=== PATIENT | male | born 1960 | race Caucasian/White ===

== ENCOUNTER 2016-11-03 12:45 | Observation (INO) | payer OTHER ==
[~2016-11-03] VITALS: Ht 180.3 cm; Wt 118.5 kg
[~2016-11-03 12:45] MED LIST: ASPI81TA45 PO; CEPH500C3 PO; LOVA20TA PO; METR-1 PO; PERC10TA27 PO; PROPOFOL 200 MG/20 ML AMP IV ONE
[2016-11-03 12:56] VITALS: BP_SYST 193; BP_SYST 198; BP_DIAS 101; BP_DIAS 116; PULSE 74; RESP 16; TEMP 97.7; O2SAT 98
[2016-11-03 13:50] LABS: BLOOD, URINE LARGE (NEG); GLUCOSE,URINE NEG (NEG); KETONE, URINE NEG (NEG); NITRITE,URINE NEG (NEG); PH, URINE 5.5 (5.0-8.5)
[2016-11-03 13:52] LABS: METHOD OF COLLECTION CLEAN CATCH; URINE COLOR RED (YELLW/STRAW)
[2016-11-03 13:53] LABS: COMMENT (UR) CULT NOT INDICATED; CULTURE IF INDICATED CULT NOT INDICATED; RBC, URINE INNUM /hpf (0-3); WBC, URINE 0-2 /hpf (0-5)
[2016-11-03 14:00] VITALS: BP 170/94; PULSE 70; RESP 18; O2SAT 96
[2016-11-03] MEDS ORDERED: SODIUM CHLOR 0.9% 1000 ML INJ 1,000 ML IV SCH ×2 (14:01→16:32)
[2016-11-03 14:15] LABS: AUTOMATED NEUTROPHIL # 10.4 TH/MM3 (1.8-7.7); BASOPHIL % 0.3 % (0.0-2.0); EOSINOPHIL # 0.1 TH/MM3 (0-0.4); EOSINOPHIL % 0.6 % (0.0-4.0); HEMATOCRIT 42.3 % (39.0-51.0); HEMO FLAGS DIFF FINAL; LYMPH % 19.6 % (9.0-44.0); LYMPHOCYTE # 2.9 TH/MM3 (1.0-4.8); MEAN CORPUSCULAR HEMOGLOBIN 30.7 PG (27.0-34.0); MEAN CORPUSCULAR HGB CONC 34.1 % (32.0-36.0); MONO % 8.3 % (0.0-8.0); NEUT % 71.2 % (16.0-70.0); PLATELET COUNT 248 TH/MM3 (150-450); RED CELL DISTRIBUTION WIDTH 12.6 % (11.6-17.2); WHITE BLOOD COUNT 14.6 TH/MM3 (4.0-11.0)
[2016-11-03] MEDS ORDERED: KETOROLAC TROMETHAMINE 30 MG/ML (IVP) VIAL IVP ONE (14:15)
[2016-11-03] MEDS ORDERED: SODIUM CHLORIDE 0.9% FLUSH 10 ML FLUSH IV FLUSH PRN ×2 (14:15→16:45)
[2016-11-03] MEDS ORDERED: ONDANSETRON HCL 4 MG/2 ML VIAL IVP ONE (14:15)
[2016-11-03 14:24] LABS: CHLORIDE 104 MEQ/L (98-107); POTASSIUM 3.7 MEQ/L (3.5-5.1); SODIUM (NA) 138 MEQ/L (136-145)
[2016-11-03 14:28] LABS: ANION GAP 9 MEQ/L (5-15); BICARBONATE 25.2 MEQ/L (21.0-32.0); BLOOD UREA NITROGEN 16 MG/DL (7-18)
[2016-11-03] MEDS ORDERED: PRED20 PO (14:29)
[2016-11-03] MEDS ORDERED: ZITH250T PO (14:29)
[2016-11-03 14:31] LABS: ALT (GPT) 47 U/L (12-78); AST (GOT) 20 U/L (15-37); GLOMERULAR FILTRATION RATE 70 ML/MIN (>89)
[2016-11-03 14:32] LABS: TOTAL BILIRUBIN ADULT 0.4 MG/DL (0.2-1.0)
--- NOTE | 2016-11-03 14:33 | PD ---
HPI Chief Complaint: Flank/Kidney Pain Time Seen by Provider: 14:01 Travel History International Travel<30 days: No Contact w/Intl Traveler<30days: No Traveled to known affect area: No History of Present Illness HPI 56-year-old male presents with right sided back pain that is been present since 9 a.m. this morning. Quality pain is sharp. Severity is severe per patient. He denies specific modifying factors. He states he had a CAT scan with Dr. fajardo that showed a kidney stone when he had blood in his urine but when he had a KUB and ultrasound they did not see it after he was on Flomax but he is guessing now that that stone is passing given his pain. He denies any other concurrent complaints. PFSH Past Medical History Heart Rhythm Problems: Yes (HX SVT) Cardiovascular Problems: Yes (HAD CARDIAC ABLATION FOR SVT) High Cholesterol: Yes Diminished Hearing: No Kidney Stones: Yes (URIC ACID) Immunizations Current: Yes Tetanus Vaccination: < 5 Years Influenza Vaccination: No Past Surgical History Cardiac Surgery: Yes (CARDIAC ABLASION-SVT ) Genitourinary Surgery: Yes (URINARY STENT, LITHOTRIPSY) Other Surgery: Yes Social History Alcohol Use: Yes (OCC) Tobacco Use: No Substance Use: No Allergies-Medications (Allergen,Severity, Reaction): Coded Allergies: meperidine (Unverified Allergy, Severe, Shortness of Breath, 11/03/16) "ANAPHYLAXIS" ciprofloxacin (Unverified Allergy, Mild, Hives, 11/03/16) Reported Meds & Prescriptions Reported Meds & Active Scripts Active Reported Prednisone 20 Mg Tab 20 Mg PO DAILY Zithromax (Azithromycin) 250 Mg Tab 250 Mg PO DIRECTED Take 2 tabs (500 mg) on day 1 then 1 tab daily x 4 days. Review of Systems Except as stated in HPI: all other systems reviewed are Neg Physical Exam Narrative GENERAL: Well-nourished, well-developed patient. Well-appearing SKIN: Warm and dry. HEAD: Normocephalic and atraumatic. EYES: No injection or drainage. ENT: No nasal drainage noted. NECK: Supple, trachea midline. CARDIOVASCULAR: Regular rate and rhythm RESPIRATORY: Breath sounds equal bilaterally. No accessory muscle use. GASTROINTESTINAL: Abdomen soft, non-tender, nondistended. EXTREMITIES: No edema. BACK: Nontender without obvious deformity. Right mid lower back NEUROLOGICAL: Awake and alert. Motor and sensory grossly within normal limits. Normal speech. Data Data Last Documented VS Vital Signs Date Time Temp Pulse Resp B/P (MAP) Pulse Ox O2 Delivery O2 Flow Rate FiO2 11/03/16 15:39 74 18 170/90 (116) 97 Room Air 11/03/16 12:56 97.7 Orders Orders Urinalysis - C+S If Indicated (11/03/16 13:35) Complete Blood Count With Diff (11/03/16 14:01) Comprehensive Metabolic Panel (11/03/16 14:01) Lipase (11/03/16 14:01) Ct Abd/Pel W/O Iv Contrast (11/03/16 14:01) Iv Access Insert/Monitor (11/03/16 14:01) Ecg Monitoring (11/03/16 14:01) Oximetry (11/03/16 14:01) NPO (11/03/16 14:01) Ondansetron Inj (Zofran Inj) (11/03/16 14:15) Sodium Chlor 0.9% 1000 Ml Inj (Ns 1000 M (11/03/16 14:01) Sodium Chloride 0.9% Flush (Ns Flush) (11/03/16 14:15) Ketorolac Inj (Toradol Inj) (11/03/16 14:15) Morphine Inj (Morphine Inj) (11/03/16 15:30) Admit Order (Ed Use Only) (11/03/16 16:11) Consult Urology (11/03/16 ) Diet Npo (11/03/16 Dinner) Labs Laboratory Tests Test 11/03/16 13:23 11/03/16 14:00 Urine Collection Type CLEAN CATCH Urine Color RED Urine Turbidity CLOUDY Urine pH 5.5 Urine Specific [place] GREATER THAN 1.035 Urine Protein 300 OR GREATER mg/dL Urine Glucose (UA) NEG mg/dL Urine Ketones NEG mg/dL Urine Occult Blood LARGE Urine Nitrite NEG Urine Bilirubin NEG Urine Leukocyte Esterase NEG Urine RBC INNUM /hpf Urine WBC 0-2 /hpf Microscopic Urinalysis Comment CULT NOT INDICATED White Blood Count 14.6 TH/MM3 Red Blood Count 4.70 MIL/MM3 Hemoglobin 14.4 GM/DL Hematocrit 42.3 % Mean Corpuscular Volume 90.0 FL Mean Corpuscular Hemoglobin 30.7 PG Mean Corpuscular Hemoglobin Concent 34.1 % Red Cell Distribution Width 12.6 % Platelet Count 248 TH/MM3 Mean Platelet Volume 8.7 FL Neutrophils (%) (Auto) 71.2 % Lymphocytes (%) (Auto) 19.6 % Monocytes (%) (Auto) 8.3 % Eosinophils (%) (Auto) 0.6 % Basophils (%) (Auto) 0.3 % Neutrophils # (Auto) 10.4 TH/MM3 Lymphocytes # (Auto) 2.9 TH/MM3 Monocytes # (Auto) 1.2 TH/MM3 Eosinophils # (Auto) 0.1 TH/MM3 Basophils # (Auto) 0.0 TH/MM3 CBC Comment DIFF FINAL Differential Comment Blood Urea Nitrogen 16 MG/DL Creatinine 1.10 MG/DL Random Glucose 100 MG/DL Total Protein 7.7 GM/DL Albumin 3.8 GM/DL Calcium Level 9.4 MG/DL Alkaline Phosphatase 61 U/L Aspartate Amino Transf (AST/SGOT) 20 U/L Alanine Aminotransferase (ALT/SGPT) 47 U/L Total Bilirubin 0.4 MG/DL Sodium Level 138 MEQ/L Potassium Level 3.7 MEQ/L Chloride Level 104 MEQ/L Carbon Dioxide Level 25.2 MEQ/L Anion Gap 9 MEQ/L Estimat Glomerular Filtration Rate 70 ML/MIN Lipase 146 U/L MDM Medical Decision Making Medical Screen Exam Complete: Yes Emergency Medical Condition: Yes Medical Record Reviewed: Yes (past history confirmed) Interpretation(s) CBC & BMP Diagram 11/03/16 14:00 Total Protein 7.7, Albumin 3.8, Calcium Level 9.4, Alkaline Phosphatase 61, Aspartate Amino Transf (AST/SGOT) 20, Alanine Aminotransferase (ALT/SGPT) 47, Total Bilirubin 0.4 Last 24 hours Impressions Abdomen/Pelvis CT 11/03/16 1401 Signed Impressions: Service Date/Time: Thursday, November 03, 2016 14:38 - CONCLUSION: 1. 9 x 10 mm calcified distal right ureteral calculus with associated moderate right sided hydroureteronephrosis. 2. Additional 2 mm nonobstructing calyceal calculus in the inferior pole of the right kidney. 3. Additional ancillary findings, as above. Santhosh Graves MD Differential Diagnosis UTI, stone, musculoskeletal, gastritis Narrative Course Will check blood work, urinalysis, CT scan abdominal pelvis and dose with IV fluids, Toradol and reevaluate ed workup with 1cm right sided stone, will discuss with his urologist and dose with morphine patient will be admitted for pain control and urology consult Physician Communication Physician Communication dr weldon states to keep npo and can stay at [place], will try to take to OR tonight dr lozada agrees to observation Diagnosis Primary Impression: Kidney stone Admitting Information Admitting Physician Requests: Observation Rhina Rivera MD Nov 03, 2016 14:33
[2016-11-03 14:34] LABS: ALKALINE PHOSPHATASE 61 U/L (45-117)
--- NOTE | 2016-11-03 15:14 | RADRPT ---
EXAM DATE/TIME: 11/03/2016 14:38 [facility] COMPARISON: CT ABDOMEN & PELVIS W/O CONTRAST, July 30, 2014, 15:32. INDICATIONS : Right flank pain with gross hematuria. History of renal stone. ORAL CONTRAST: No oral contrast ingested. RADIATION DOSE: 23.98 CTDIvol (mGy) MEDICAL HISTORY : Cardiovascular disease. Renal calculi. SURGICAL HISTORY : Cardiac ablation. ENCOUNTER: Initial ACUITY: 1 day PAIN SCALE: 5/10 LOCATION: Right flank TECHNIQUE: Volumetric scanning of the abdomen and pelvis was performed. Using automated exposure control and ad justment of the mA and/or kV according to patient size, radiation dose was kept as low as reasonably achievable to obtain optimal diagnostic quality images. DICOM format image data is available electro nically for review and comparison. FINDINGS: LOWER LUNGS: The visualized lower lungs are clear. LIVER: The visualized portions of the liver demonstrate a stable subcentimeter hypodense lesion in segment 6 which is too small to fully characterize. Liver is otherwise grossly unremarkable without intrahepat ic ductal dilatation. Redemonstration of contracted gallbladder filled with calcified stones. SPLEEN: Normal size without lesion. PANCREAS: Within normal limits. KIDNEYS: Moderate right-sided hydronephrosis with perinephric stranding and hydroureter extending to a 9 x 10 mm calcified calculus in the distal right ureter. There is a second 2 mm calcified calculus in the in ferior pole of the right kidney. No additional radiopaque renal calculi are demonstrated. ADRENAL GLANDS: Within normal limits. VASCULAR: There is no aortic aneurysm. BOWEL/MESENTERY: Moderate sigmoid diverticulosis and scattered descending colonic diverticula. No evidence for bowel o bstruction. No free air. No drainable fluid collection or free fluid. ABDOMINAL WALL: Within normal limits. RETROPERITONEUM: There is no lymphadenopathy. BLADDER: No wall thickening or mass. REPRODUCTIVE: Within normal limits. INGUINAL: There is no lymphadenopathy or hernia. MUSCULOSKELETAL: Within normal limits for patient age. CONCLUSION: 1. 9 x 10 mm calcified distal right ureteral calculus with associated moderate right sided hydrourete ronephrosis. 2. Additional 2 mm nonobstructing calyceal calculus in the inferior pole of the right kidney. 3. Additional ancillary findings, as above. Santhosh Graves MD on November 03, 2016 at 15:04 Board Certified Radiologist. This report was verified electronically.
[2016-11-03] MEDS ORDERED: MORPHINE SULFATE 4 MG/ML INJ IV PUSH ONE (15:30)
[2016-11-03 15:39] VITALS: BP 170/90; PULSE 74; RESP 18; O2SAT 97
[2016-11-03] MEDS ORDERED: ceFAZolin 2 GM PREMIX 50 ML IV SCH (16:30)
[2016-11-03] MEDS ORDERED: LACTULOSE SYRUP 20 GM/30 ML CUP PO PRN (16:45)
[2016-11-03] MEDS ORDERED: BISACODYL 10 MG SUPP RECTAL PRN (16:45)
[2016-11-03] MEDS ORDERED: NALOXONE HCL 0.4 MG/ML AMP IV PUSH PRN (16:45)
[2016-11-03] MEDS ORDERED: MAGNESIUM HYDROXIDE SUSP 30 ML CUP PO PRN (16:45)
[2016-11-03] MEDS ORDERED: SENNOSIDES 8.6 MG TAB PO PRN (16:45)
[2016-11-03] MEDS ORDERED: ACETAMINOPHEN 325 MG TAB PO PRN (16:45)
--- NOTE | 2016-11-03 17:14 | HHI.HP ---
[facility] Service [facility] Primary Care Physician Hakan Dang MD, PhD Admission Diagnosis kidney stone Diagnoses: (1) Kidney stone Diagnosis: Principal (2) Elevated blood pressure reading Chief Complaint: Flank pain and bloody urine Travel History International Travel<30 Days: No Contact w/Intl Traveler <30 Da: No Traveled to Known Affected Are: No History of Present Illness Written by Gerardo Boogie, acting as scribe for Dr. Ortega on 11/03/16 at 17:03. 56-year-old male with no chronic medical illnesses presented to hospital because acute onset of flank pain and hematuria. Patient states that his normal state of health until this morning approximately 9:30 when he developed severe pain in his right flank and started seeing blood. He came to emergency department for evaluation has CT scan done which does show a 1.9 x 10 mm calcified right urethral calculus with associated right sided hydronephrosis. ER physician contacted urologist who recommended to keep the patient nothing by mouth and he will take the stone out tonight. Upon evaluating the patient he is resting carefully. Pain is controlled. Denies any fever or chills, abdominal pain, and vomiting Review of Systems Gastrointestinal: COMPLAINS OF: Abdominal pain Genitourinary: COMPLAINS OF: Hematuria Past Family Social History Past Medical History History of SVT History kidney stones Past Surgical History Cardiac ablation for SVT Cataract surgery Vasectomy History of ganglion cyst removed from bilateral wrist Reported Medications Reported Meds & Active Scripts Active Reported Prednisone 20 Mg Tab 20 Mg PO DAILY Zithromax (Azithromycin) 250 Mg Tab 250 Mg PO DIRECTED Take 2 tabs (500 mg) on day 1 then 1 tab daily x 4 days. Allergies: Coded Allergies: meperidine (Unverified Allergy, Severe, Anaphylaxis, 11/03/16) "ANAPHYLAXIS" ciprofloxacin (Unverified Allergy, Mild, Hives, 11/03/16) Family History Reviewed and unremarkable Social History Patient denies any tobacco, alcohol or illicit drugs Physical Exam Vital Signs Vital Signs Date Time Temp Pulse Resp B/P (MAP) Pulse Ox O2 Delivery O2 Flow Rate FiO2 11/03/16 15:39 74 18 170/90 (116) 97 Room Air 11/03/16 14:00 70 18 170/94 (119) 96 Room Air 11/03/16 14:00 96 Room Air 11/03/16 12:56 97.7 74 16 193/116 (141) 98 198/101 (133) Physical Exam GENERAL: Well-developed, well-nourished, in no acute distress. alert and orientated HEENT: Head is normocephalic without any lesions or masses noted. Facial features are symmetric. Eyes: Pupils equal round reactive to light. Extraocular muscles are intact. Conjunctivae were clear. Oropharyngeal: Pharynx without any erythema edema. Tongue is midline without deviation. Buccal mucosa is moist without any masses or lesions NECK: Supple without any masses. Trachea midline no deviation. No JVD, no bruits are appreciated CARDIAC: Regular rhythm, regular rate. S1/S2 are heard. No murmurs gallops or rubs. LUNGS: Clear to auscultation bilaterally. No wheeze, rhonchi or rales. No use of accessory muscles on inspiration or expiration. ABDOMEN: Soft, nontender. Nondistended. Bowel sounds heard in all 4 quadrants. No organomegaly or masses. Negative rebound, negative guarding. Right flank pain EXTREMITIES: No edema, pulses are equal bilaterally. No cyanosis or clubbing NEUROLOGY: Mood and affect appear appropriate. Cranial nerves II through XII grossly intact. Muscle strength 5/5 in upper and lower extremities bilaterally. Deep tendon reflexes are 2+ in upper and lower extremities bilaterally. Laboratory Laboratory Tests Test 11/03/16 13:23 11/03/16 14:00 Urine Collection Type CLEAN CATCH Urine Color RED Urine Turbidity CLOUDY Urine pH 5.5 Urine Specific [place] GREATER THAN 1.035 Urine Protein 300 OR GREATER Urine Glucose (UA) NEG Urine Ketones NEG Urine Occult Blood LARGE Urine Nitrite NEG Urine Bilirubin NEG Urine Leukocyte Esterase NEG Urine RBC INNUM Urine WBC 0-2 Microscopic Urinalysis Comment CULT NOT INDICATED White Blood Count 14.6 Red Blood Count 4.70 Hemoglobin 14.4 Hematocrit 42.3 Mean Corpuscular Volume 90.0 Mean Corpuscular Hemoglobin 30.7 Mean Corpuscular Hemoglobin Concent 34.1 Red Cell Distribution Width 12.6 Platelet Count 248 Mean Platelet Volume 8.7 Neutrophils (%) (Auto) 71.2 Lymphocytes (%) (Auto) 19.6 Monocytes (%) (Auto) 8.3 Eosinophils (%) (Auto) 0.6 Basophils (%) (Auto) 0.3 Neutrophils # (Auto) 10.4 Lymphocytes # (Auto) 2.9 Monocytes # (Auto) 1.2 Eosinophils # (Auto) 0.1 Basophils # (Auto) 0.0 CBC Comment DIFF FINAL Differential Comment Blood Urea Nitrogen 16 Creatinine 1.10 Random Glucose 100 Total Protein 7.7 Albumin 3.8 Calcium Level 9.4 Alkaline Phosphatase 61 Aspartate Amino Transf (AST/SGOT) 20 Alanine Aminotransferase (ALT/SGPT) 47 Total Bilirubin 0.4 Sodium Level 138 Potassium Level 3.7 Chloride Level 104 Carbon Dioxide Level 25.2 Anion Gap 9 Estimat Glomerular Filtration Rate 70 Lipase 146 Result Diagram: 11/03/16 1400 11/03/16 1400 Imaging Last Impressions Abdomen/Pelvis CT 11/03/16 1401 Signed Impressions: Service Date/Time: Thursday, November 03, 2016 14:38 - CONCLUSION: 1. 9 x 10 mm calcified distal right ureteral calculus with associated moderate right sided hydroureteronephrosis. 2. Additional 2 mm nonobstructing calyceal calculus in the inferior pole of the right kidney. 3. Additional ancillary findings, as above. MD Maikel Christensen VTE Risk Assessment Caprini VTE Risk Assessment: No/Low Risk (score <= 1) Caprini Risk Assessment Model Point Value = 1 Point Value = 2 Point Value = 3 Point Value = 5 Age 41-60 Minor surgery BMI > 25 kg/m2 Swollen legs Varicose veins or History of unexplained or recurrent spontaneous Oral contraceptives or hormone replacement Sepsis (< 1 month) Serious lung disease, including pneumonia (< 1 month) Abnormal pulmonary function Acute myocardial infarction Congestive heart failure (< 1 month) History of inflammatory bowel disease Medical patient at bed rest Age 61-74 Arthroscopic surgery Major open surgery (> 45 min) Laparoscopic surgery (> 45 min) Malignancy Confined to bed (> 72 hours) Immobilizing plaster cast Central venous access Age >= 75 History of VTE Family history of VTE Factor V Leiden Prothrombin [id number] Lupus anticoagulant Anticardiolipin antibodies Elevated serum homocysteine Heparin-induced thrombocytopenia Other congenital or acquired thrombophilia Stroke (< 1 month) Elective arthroplasty Hip, pelvis, or leg fracture Acute spinal cord injury (< 1 month) Prophylaxis Regimen Total Risk Factor Score Risk Level Prophylaxis Regimen 0-1 Low Early ambulation 2 Moderate Order ONE of the following: *Sequential Compression Device (SCD) *Heparin 5000 units SQ BID 3-4 Higher Order ONE of the following medications: *Heparin 5000 units SQ TID *Enoxaparin/Lovenox 40 mg SQ daily (WT < 150 kg, CrCl > 30 mL/min) *Enoxaparin/Lovenox 30 mg SQ daily (WT < 150 kg, CrCl > 10-29 mL/min) *Enoxaparin/Lovenox 30 mg SQ BID (WT < 150 kg, CrCl > 30 mL/min) AND/OR *Sequential Compression Device (SCD) 5 or more Highest Order ONE of the following medications: *Heparin 5000 units SQ TID (Preferred with Epidurals) *Enoxaparin/Lovenox 40 mg SQ daily (WT < 150 kg, CrCl > 30 mL/min) *Enoxaparin/Lovenox 30 mg SQ daily (WT < 150 kg, CrCl > 10-29 mL/min) *Enoxaparin/Lovenox 30 mg SQ BID (WT < 150 kg, CrCl > 30 mL/min) AND *Sequential Compression Device (SCD) Assessment and Plan Assessment and Plan Right renal calculi with moderate right hydronephrosis and hematuria Continue IV fluids Continue straining urine Continue pain control Urologist consulted for further recommendations and plans for surgical intervention Hypertension Likely secondary to pain Clonidine/Vasotec as needed DVT prevention Sequential compression devices This note was transcribed by felix Boogie. I, Dr. Gordon Burt personally performed the history, physical exam, and medical decision making; and confirmed the accuracy of the information in the transcribed note. Authenticated by Dr. Gordon Burt on 11/03/16 at 17:18. Gerardo Boogie Nov 03, 2016 17:14 Gordon Montes MD Nov 03, 2016 17:42
[2016-11-03] MEDS ORDERED: ENALAPRILAT 1.25 MG/ML VIAL IV PUSH PRN (17:15)
[2016-11-03] MEDS ORDERED: cloNIDine HCL 0.1 MG TAB PO PRN (17:15)
[2016-11-03] MEDS ORDERED: MORPHINE SULFATE 4 MG/ML INJ IV PUSH PRN (17:15)
[2016-11-03] MEDS ORDERED: LACTATED RINGER'S 1000 ML IV PRN (17:45)
[2016-11-03] MEDS ORDERED: CHLORHEXIDINE GLUCONATE 2 % 1 PACK (2 CLOTHS) TOPICAL PRN (17:45)
[2016-11-03] MEDS ORDERED: INSULIN HUMAN REGULAR 1,000 UNITS/10 ML VIAL SQ PRN (17:45)
[2016-11-03] MEDS ORDERED: POVIDONE IODINE 5% (ANTISEPSIS KIT) 4 APPLICATIONS EACH NARE PRN (17:45)
[2016-11-03] MEDS ORDERED: SODIUM CHLORID 0.9% 500 ML IV PRN (17:45)
[2016-11-03] MEDS ORDERED: MIDAZOLAM HCL 2 MG/2 ML VIAL ONE (18:04)
[2016-11-03] MEDS ORDERED: IOHEXOL 350 MG/ML 50 ML BTL (for RAD DIAG) OTHER ONE (18:29)
[2016-11-03 18:45] VITALS: PULSE 86
--- NOTE | 2016-11-03 18:50 | MB ---
cc: MARIBETH MONROE DATE OF CONSULTATION 11/03/2016 HISTORY Mr. Donaldson is a pleasant 56-year-old male who presented with acute onset of right-sided flank pain this a.m. associated with some hematuria. CT scan in the emergency room demonstrated a 9 mm lower ureteral calculus causing hydroureter with hydronephrosis. The patient states he has had stones in the past and currently is under the care of Dr. Mcfarlane. PAST MEDICAL HISTORY His medical history includes: 1. SVT. 2. With a history of kidney stones. PAST SURGICAL HISTORY Noted for: 1. Cardiac ablation for SVT. 2. Cataract surgery. 3. Vasectomy. 4. Ganglion cyst removal. MEDICATIONS Please refer to the chart. ALLERGIES CURRENT ALLERGIES ARE TO CIPRO AND MEDPERIDINE. FAMILY HISTORY Denies any family history of prostate cancer. SOCIAL HISTORY His denies smoking, drinking or using drugs. ROS: Right flank pain. NO voiding complaints. Denies CP, SOB, GAit disturbances, skin lesions. Psych: generalized mood Neuro: Normal gait The remaining ROS were reviewed and were negative. PHYSICAL EXAMINATION VITAL SIGNS: Today temperature is 98.1, heart rate is 74, respiratory 18, 169/81. GENERAL: He is a well-developed, well-nourished 56-year-old male in no acute distress. HEENT: Normocephalic, atraumatic. Pupils equal, round, react to light. Extraocular movements intact. NECK: Supple. HEART: Regular rate and rhythm. LUNGS: Clear to auscultation. ABDOMEN: Soft. Some right lower quadrant tenderness is noted and right CVA tenderness is noted. GENITOURINARY: Normal phallus. Testes are descended. EXTREMITIES: Show no cyanosis, clubbing or edema. SKIN: Shows no lesions. NEUROLOGIC: Cranial nerves II-XII are intact. PSYCHIATRIC: Generalized mood. LABORATORY DATA White count 14.6, hemoglobin 14.4, hematocrit 42.3, platelet count of 248. Sodium 138, potassium 3.7, chloride 104, CO2 25.2, BUN 16, creatinine 1.1, glucose of 100. Urinalysis shows 0-2 white cells, numerous red cells. IMAGING Shows a 9-10 mm calcified distal right ureteral calculus with moderate size right hydro ureteral nephrosis. ASSESSMENT A 56-year-old male with history of nephrolithiasis who presents with findings of a 9 mm distal ureteral calculus causing hydro ureteral nephrosis. RECOMMENDATIONS Cystoscopy with right double-J stent insertion. Risks and benefits were discussed. The patient is willing to proceed with the procedure. He will follow up Dr. Mcfarlane as an outpatient to eliminate his stone burden. Maribeth SOLANO/KK /6:14 PM /6:40 PM MTDD
[2016-11-03 19:50] VITALS: BP 152/91; PULSE 70; RESP 16; TEMP 98.6; O2SAT 98
[2016-11-03] MEDS ORDERED: DOCUSATE SODIUM 50 MG/SENNA 8.6 MG TAB PO SCH (21:00)
[2016-11-03] MEDS ORDERED: SODIUM CHLORIDE 0.9% FLUSH 10 ML FLUSH IV FLUSH SCH (21:00)
--- NOTE | 2016-11-03 21:47 | EKG ---
Date Performed: 11/03/2016 Time Performed: 17:18:00 PTAGE: 56 years EKG: Sinus rhythm NONSPECIFIC ST ELEVATION BORDERLINE ECG PREVIOUS TRACING : 10/22/2012 09.58 No significant change from previous tracing noted. DOCTOR: Oracio Whitney Interpretating Date/Time 11/03/2016 21:46:41
--- NOTE | 2016-11-05 20:21 | MP ---
cc: JESUS TALAMANTES DATE OF SURGERY: 11/03/2016 PREOPERATIVE DIAGNOSIS: 9 mm distal right distal ureteral stone with hydro ureteral nephrosis. POSTOPERATIVE DIAGNOSIS: 9 mm distal right distal ureteral stone with hydro ureteral nephrosis. PROCEDURE: Cystoscopy, right retrograde study, right double-J stent insertion. SURGEON: Shaggy Talamantes MD. ANESTHESIA: General LMA. FLUIDS: One liter Crystalloid. ESTIMATED BLOOD LOSS: None. COMPLICATIONS: None. DISPOSITION: The patient tolerated the procedure well. DRAINS: 6 Romanian, 22 cm right double-J stent INDICATIONS FOR PROCEDURE: Enrique Donaldson is a 56-year-old male who presented to the emergency room with right-sided flank pain. CT scan demonstrated a 9 mm distal right ureteral stone with marked hydro ureteral nephrosis. Decision was made to bring the patient to the operating room to undergo cystoscopy, right double-J stent insertion. The risks and benefits were discussed preoperatively and he was willing to proceed. DESCRIPTION OF PROCEDURE: The patient was brought to operating room identified by myself as Enrique Donaldson. He is placed in the dorsolithotomy position, prepped and draped in the usual sterile fashion. He received preprocedure antibiotics, and general LMA anesthesia was administered. A 22 Romanian cystoscope was inserted in the bladder. Pancystoscopy did not reveal any abnormalities. The right ureteral orifice was identified and there was some blood noted coming from the right ureteral orifice. A 5 Romanian open catheter was inserted into the right ureteral orifice and a retrograde study was performed. The stone was visualized in the lower 1/3 of the right ureter and contrast would not pass beyond this point. A 0.35 sensor wire, though was able to pass through the open-ended catheter and up into the kidney with a good curl. A 6-Romanian 22 cm right double-J stent was then placed over the wire with a good curl in the kidney and a good curl in the bladder. The bladder was evacuated. The patient was awoken and transferred to recovery in stable condition. The patient will follow up with Dr. Mcfarlane in the office for definitive treatment of his right distal ureteral stone. Shaggy SOLANO/ANGELITA /6:46 PM /8:05 PM
== END 2016-11-03 19:00 | disposition home or self-care (01) ==
LOC: PHED 12:45 → PHEDA 16:13 → PH5A 19:00
PROVIDERS: ADMIT Hospitalist; ATTEND Hospitalist
DX: N13.2 Hydronephrosis with renal and ureteral calculous obstruction (principal); R94.31 Abnormal electrocardiogram [ECG] [EKG]; E78.00 Pure hypercholesterolemia, unspecified; Z87.442 Personal history of urinary calculi
CPT/HCPCS: 00910; 52332; 74176; 76000; 80053; 81001; 83690; 85025; 93005; 96361; 96374; 96375; 96376; 99285; C1769; C2617; G0378; J0690; J1885; J2250; J2270; J2405; J3010; J7030; J7120; Q9967

== ENCOUNTER 2017-01-27 05:57 | Observation (INO) | payer OTHER ==
[~2017-01-27] VITALS: Ht 180.3 cm; Wt 118.0 kg
[~2017-01-27 05:57] MED LIST changes: -ASPI81TA45 PO; -CEPH500C3 PO; -LOVA20TA PO; -METR-1 PO; -PERC10TA27 PO; +PRED20 PO; -PROPOFOL 200 MG/20 ML AMP IV ONE; +ZITH250T PO
[2017-01-27 06:00] VITALS: BP 190/85; PULSE 88; RESP 16; TEMP 98.1; O2SAT 95
--- NOTE | 2017-01-27 06:14 | PD ---
HPI Chief Complaint: Abdominal Pain Time Seen by Provider: 06:08 Travel History International Travel<30 days: No Contact w/Intl Traveler<30days: No Traveled to known affect area: No History of Present Illness HPI 56-year-old male presents to the emergency department by private transportation for complaint of right upper quadrant and epigastric abdominal pain since 12 midnight. Patient reports he has a known history of gallstones. Patient states he frequently has biliary colic but usually resolves in a short amount of time. This episode has lasted 6 hours. Patient complains of nausea without vomiting. Patient denies fever chills. Patient denies chest pain or shortness of breath. Patient takes no blood thinning agents. Patient does have history of kidney stones but states pain is different and recently underwent stenting and retrieval of stones and does not believe it is a kidney stone. Patient denies other concerns or complaints. Patient rates pain 5-8/10 in intensity. Patient has taken no medications for discomfort. Patient is unable to identify exacerbating or alleviating factors. PFSH Past Medical History Narrative Medical SVT cardiac ablation dyslipidemia kidney stones gallstones ureteral stent lithotripsy alcohol use nursing notes reviewed Heart Rhythm Problems: Yes (HX SVT) Cardiovascular Problems: Yes (HAD CARDIAC ABLATION FOR SVT) High Cholesterol: Yes Diminished Hearing: No Kidney Stones: Yes (URIC ACID) Immunizations Current: Yes ?: Not Past Surgical History Cardiac Surgery: Yes (CARDIAC ABLASION-SVT ) Genitourinary Surgery: Yes (URINARY STENT, LITHOTRIPSY) Other Surgery: Yes Social History Alcohol Use: Yes ([facility]) Tobacco Use: No Substance Use: No Allergies-Medications (Allergen,Severity, Reaction): Coded Allergies: meperidine (Unverified Allergy, Severe, Anaphylaxis, 01/27/17) "ANAPHYLAXIS" ciprofloxacin (Unverified Allergy, Mild, Hives, 01/27/17) Reported Meds & Prescriptions Reported Meds & Active Scripts Active No Active Prescriptions or Reported Medications Review of Systems Except as stated in HPI: all other systems reviewed are Neg General / Constitutional: No: Fever, Chills HENT: No: Congestion Cardiovascular: No: Chest Pain or Discomfort Respiratory: No: Shortness of Breath Gastrointestinal: Positive: Nausea, Abdominal Pain, No: Vomiting, Diarrhea Genitourinary: No: Flank Pain (right upper quadrant) Musculoskeletal: No: Pain Skin: No Rash Neurologic: No: Weakness Hematologic/Lymphatic: No: Lymph Node Enlargement Physical Exam Narrative GENERAL: Well-developed well-nourished male in apparent discomfort with no respiratory distress SKIN: Warm and dry. HEAD: Normocephalic. EYES: No scleral icterus. No injection or drainage. NECK: Supple, trachea midline. No JVD or lymphadenopathy. CARDIOVASCULAR: Regular rate and rhythm without murmurs, gallops, or rubs. RESPIRATORY: Breath sounds equal bilaterally. No accessory muscle use. GASTROINTESTINAL: Abdomen soft, reproducible epigastric tenderness to palpation and right upper quadrant tenderness to palpation without guarding or rebound, nondistended. MUSCULOSKELETAL: No cyanosis, or edema. BACK: Nontender without obvious deformity. No CVA tenderness. Data Data Last Documented VS Vital Signs Date Time Temp Pulse Resp B/P (MAP) Pulse Ox O2 Delivery O2 Flow Rate FiO2 01/27/17 06:19 94 Room Air 01/27/17 06:19 87 18 01/27/17 06:00 98.1 Orders Orders Complete Blood Count With Diff (01/27/17 06:08) Comprehensive Metabolic Panel (01/27/17 06:08) Lipase (01/27/17 06:08) Us Abdomen Gallbladder (01/27/17 ) Iv Access Insert/Monitor (01/27/17 06:08) Ecg Monitoring (01/27/17 06:08) Oximetry (01/27/17 06:08) Ondansetron Inj (Zofran Inj) (01/27/17 06:15) Sodium Chlor 0.9% 1000 Ml Inj (Ns 1000 M (01/27/17 06:08) Sodium Chloride 0.9% Flush (Ns Flush) (01/27/17 06:15) Hydromorphone Pf Inj (Dilaudid Pf Inj) (01/27/17 06:15) NPO (01/27/17 06:08) Electrocardiogram (01/27/17 ) Labs Laboratory Tests Test 01/27/17 06:15 White Blood Count 11.0 TH/MM3 Red Blood Count 4.98 MIL/MM3 Hemoglobin 15.9 GM/DL Hematocrit 45.1 % Mean Corpuscular Volume 90.5 FL Mean Corpuscular Hemoglobin 32.0 PG Mean Corpuscular Hemoglobin Concent 35.4 % Red Cell Distribution Width 13.6 % Platelet Count 248 TH/MM3 Mean Platelet Volume 9.1 FL Neutrophils (%) (Auto) 68.6 % Lymphocytes (%) (Auto) 25.3 % Monocytes (%) (Auto) 5.1 % Eosinophils (%) (Auto) 0.6 % Basophils (%) (Auto) 0.4 % Neutrophils # (Auto) 7.6 TH/MM3 Lymphocytes # (Auto) 2.8 TH/MM3 Monocytes # (Auto) 0.6 TH/MM3 Eosinophils # (Auto) 0.1 TH/MM3 Basophils # (Auto) 0.0 TH/MM3 CBC Comment DIFF FINAL Differential Comment Blood Urea Nitrogen 15 MG/DL Creatinine 1.14 MG/DL Random Glucose 144 MG/DL Total Protein 8.6 GM/DL Albumin 4.3 GM/DL Calcium Level 9.1 MG/DL Alkaline Phosphatase 85 U/L Aspartate Amino Transf (AST/SGOT) 25 U/L Alanine Aminotransferase (ALT/SGPT) 49 U/L Total Bilirubin 0.4 MG/DL Sodium Level 136 MEQ/L Potassium Level 4.4 MEQ/L Chloride Level 103 MEQ/L Carbon Dioxide Level 25.9 MEQ/L Anion Gap 7 MEQ/L Estimat Glomerular Filtration Rate 67 ML/MIN Lipase 180 U/L [facility] Medical Decision Making Medical Screen Exam Complete: Yes Emergency Medical Condition: Yes Medical Record Reviewed: Yes (CT abdomen and pelvis 10/2016 no aneurysm positive gallstones positive kidney stones) Interpretation(s) EKG: Normal sinus rhythm rate [address] elevation injury pattern or ectopy noted CBC & BMP Diagram 01/27/17 06:15 Total Protein 8.6 H, Albumin 4.3, Calcium Level 9.1, Alkaline Phosphatase 85, Aspartate Amino Transf (AST/SGOT) 25, Alanine Aminotransferase (ALT/SGPT) 49, Total Bilirubin 0.4 Differential Diagnosis Abdominal pain, cholecystitis, choledocholithiasis, pancreatitis also to consider gastritis peptic ulcer disease ACS Narrative Course Patient placed on monitor IV access obtained EKG performed; patient administered normal saline 125 cc per hour along with 4 mg of Zofran and 1 mg of Dilaudid IV; ultrasound gallbladder ordered At 6:50 AM care signed over to oncoming physician Dr. Jeanie Mann No Active Prescriptions or Reported Meds Zeynep Cowart MD Jan 27, 2017 06:14
[2017-01-27] MEDS ORDERED: SODIUM CHLORIDE 0.9% FLUSH 10 ML FLUSH IV FLUSH PRN ×2 (06:15→11:45)
[2017-01-27] MEDS ORDERED: ONDANSETRON HCL 4 MG/2 ML VIAL IVP ONE (06:15)
[2017-01-27] MEDS ORDERED: HYDROmorphone HCL PF 1 MG/ML VIAL IVS ONE (06:15)
[2017-01-27] MEDS: SODIUM CHLOR 0.9% 1000 ML INJ 1,000 ML IV SCH ×4 (06:17→21:28)
[2017-01-27 06:19] VITALS: BP 155/89; PULSE 87; RESP 18; O2SAT 93; O2SAT 94
[2017-01-27 06:21] LABS: AUTOMATED NEUTROPHIL # 7.6 TH/MM3 (1.8-7.7); BASOPHIL % 0.4 % (0.0-2.0); EOSINOPHIL # 0.1 TH/MM3 (0-0.4); EOSINOPHIL % 0.6 % (0.0-4.0); HEMATOCRIT 45.1 % (39.0-51.0); HEMO FLAGS DIFF FINAL; LYMPH % 25.3 % (9.0-44.0); LYMPHOCYTE # 2.8 TH/MM3 (1.0-4.8); MEAN CELL VOLUME 90.5 FL (80.0-100.0); MEAN CORPUSCULAR HGB CONC 35.4 % (32.0-36.0); MONO % 5.1 % (0.0-8.0); NEUT % 68.6 % (16.0-70.0); PLATELET COUNT 248 TH/MM3 (150-450); RED BLOOD COUNT 4.98 MIL/MM3 (4.50-5.90); RED CELL DISTRIBUTION WIDTH 13.6 % (11.6-17.2)
[2017-01-27 06:44] LABS: ALT (GPT) 49 U/L (12-78)
[2017-01-27 06:46] LABS: ALKALINE PHOSPHATASE 85 U/L (45-117); ANION GAP 7 MEQ/L (5-15); AST (GOT) 25 U/L (15-37); BICARBONATE 25.9 MEQ/L (21.0-32.0); BLOOD UREA NITROGEN 15 MG/DL (7-18); CHLORIDE 103 MEQ/L (98-107); GLOMERULAR FILTRATION RATE 67 ML/MIN (>89); POTASSIUM 4.4 MEQ/L (3.5-5.1); SODIUM (NA) 136 MEQ/L (136-145); TOTAL BILIRUBIN ADULT 0.4 MG/DL (0.2-1.0)
--- NOTE | 2017-01-27 07:37 | PD ---
Physical Exam Narrative Received sign out from previous team to follow up US gallbladder. 56yo M with PMH of cholelithiasis here with RUQ abdominal pain. Pt given dilaudid and zofran by previous team and reevaluated at bedside. Said pain and nausea has improved. Pt is well appearing. Labs reviewed, no leukocytosis. LFT and lipase is normal. Pt reevaluated at bedside and RUQ pain is back along with nausea. Morphine and zofran ordered. US gallbladder showed cholelithiasis and pericholecystic fluid. Acute cholecystitis cannot be excluded. Given that pt is still in pain and have nausea after IV dilaudid and zofran, discussed with Dr. Santos form surgery who will admit pt. Recommend IV zosyn which was given. Data Data Last Documented VS Vital Signs Date Time Temp Pulse Resp B/P (MAP) Pulse Ox O2 Delivery O2 Flow Rate FiO2 01/27/17 08:40 78 18 133/73 (93) 95 Room Air 01/27/17 06:00 98.1 Orders Orders Complete Blood Count With Diff (01/27/17 06:08) Comprehensive Metabolic Panel (01/27/17 06:08) Lipase (01/27/17 06:08) Us Abdomen Gallbladder (01/27/17 ) Iv Access Insert/Monitor (01/27/17 06:08) Ecg Monitoring (01/27/17 06:08) Oximetry (01/27/17 06:08) Ondansetron Inj (Zofran Inj) (01/27/17 06:15) Sodium Chlor 0.9% 1000 Ml Inj (Ns 1000 M (01/27/17 06:08) Sodium Chloride 0.9% Flush (Ns Flush) (01/27/17 06:15) Hydromorphone Pf Inj (Dilaudid Pf Inj) (01/27/17 06:15) NPO (01/27/17 06:08) Electrocardiogram (01/27/17 ) Morphine Inj (Morphine Inj) (01/27/17 08:30) Ondansetron Inj (Zofran Inj) (01/27/17 08:45) Admit Order (Ed Use Only) (01/27/17 08:58) Piperacil-Tazo 3.375 Gm Premix (Zosyn 3. (12/11/17 09:00) Labs Laboratory Tests Test 01/27/17 06:15 White Blood Count 11.0 TH/MM3 Red Blood Count 4.98 MIL/MM3 Hemoglobin 15.9 GM/DL Hematocrit 45.1 % Mean Corpuscular Volume 90.5 FL Mean Corpuscular Hemoglobin 32.0 PG Mean Corpuscular Hemoglobin Concent 35.4 % Red Cell Distribution Width 13.6 % Platelet Count 248 TH/MM3 Mean Platelet Volume 9.1 FL Neutrophils (%) (Auto) 68.6 % Lymphocytes (%) (Auto) 25.3 % Monocytes (%) (Auto) 5.1 % Eosinophils (%) (Auto) 0.6 % Basophils (%) (Auto) 0.4 % Neutrophils # (Auto) 7.6 TH/MM3 Lymphocytes # (Auto) 2.8 TH/MM3 Monocytes # (Auto) 0.6 TH/MM3 Eosinophils # (Auto) 0.1 TH/MM3 Basophils # (Auto) 0.0 TH/MM3 CBC Comment DIFF FINAL Differential Comment Blood Urea Nitrogen 15 MG/DL Creatinine 1.14 MG/DL Random Glucose 144 MG/DL Total Protein 8.6 GM/DL Albumin 4.3 GM/DL Calcium Level 9.1 MG/DL Alkaline Phosphatase 85 U/L Aspartate Amino Transf (AST/SGOT) 25 U/L Alanine Aminotransferase (ALT/SGPT) 49 U/L Total Bilirubin 0.4 MG/DL Sodium Level 136 MEQ/L Potassium Level 4.4 MEQ/L Chloride Level 103 MEQ/L Carbon Dioxide Level 25.9 MEQ/L Anion Gap 7 MEQ/L Estimat Glomerular Filtration Rate 67 ML/MIN Lipase 180 U/L MDM Supervised Visit with GRACIE: No Diagnosis Primary Impression: Acute cholecystitis Admitting Information Admitting Physician Requests: Admit Scripts No Active Prescriptions or Reported Meds Rosy Ware DO Jan 27, 2017 07:37
--- NOTE | 2017-01-27 08:08 | RADRPT ---
EXAM DATE/TIME: 01/27/2017 07:33 [place] COMPARISON: CT ABDOMEN & PELVIS W/O CONTRAST, November 03, 2016, 14:38. INDICATIONS : Right upper quadrant pain. MEDICAL HISTORY : Hypercholesterolemia. Renal calculi. History of SVT. SURGICAL HISTORY : Optic lens implant. Cardiac ablation. Renal stent. Lithotripsy. Ganglion cysts removed, bilateral wri sts. ENCOUNTER: Initial ACUITY: 4-6 days PAIN SCORE: 4/10 LOCATION: Right upper quadrant MEASUREMENTS: LIVER: 18.7 cm length COMMON DUCT: 5 mm RIGHT KIDNEY: 12.4 x 6.1 x 6.2 cm FINDINGS: LIVER: Normal echotexture without focal lesion or ductal dilatation. Hepatopedal flow. Small simple cyst rig ht lobe measures 11 x 9 x 13 mm. COMMON DUCT: No intraluminal mass or stone visualized. GALLBLADDER: Contains multiple stones including non-mobile stone in the neck, demonstrates no wall thickening. Min imal pericholecystic fluid. PANCREAS: The visualized portions are within normal limits. RIGHT KIDNEY: No evidence of hydronephrosis, stone, or mass. CONCLUSION: 1. Liver is mildly echogenic which can be seen with hepatic steatosis. 2. Benign hepatic cyst. 3. Cholelithiasis and pericholecystic fluid. Acute cholecystitis cannot be excluded. Kevin Hollis MD on January 27, 2017 at 8:04 Board Certified Radiologist. This report was verified electronically.
[2017-01-27] MEDS ORDERED: MORPHINE SULFATE 4 MG/ML INJ IV PUSH ONE (08:30)
[2017-01-27 08:40] VITALS: BP 133/73; PULSE 78; RESP 18; O2SAT 95
[2017-01-27] MEDS ORDERED: ONDANSETRON HCL 4 MG/2 ML VIAL IV PUSH ONE ×2 (08:45→12:00)
[2017-01-27] MEDS ORDERED: PIPERACIL-TAZO 3.375 GM PREMIX 50 ML IV ONE (09:00)
[2017-01-27] MEDS ORDERED: MORPHINE SULFATE 4 MG/ML INJ IV PUSH PRN (11:45)
[2017-01-27] MEDS ORDERED: ONDANSETRON HCL 4 MG/2 ML VIAL IV PUSH PRN (11:45)
[2017-01-27 12:00] VITALS: BP 125/80; PULSE 67; RESP 20; TEMP 97.8; O2SAT 96
[2017-01-27] MEDS ORDERED: DEXAMETHASONE SOD PHOS 4 MG/ML VIAL IV ONE (12:00)
[2017-01-27] MEDS ORDERED: ROCURONIUM INJ 50 MG/5 ML SYRINGE IV PUSH ONE (12:00)
[2017-01-27] MEDS ORDERED: NEOSTIGMINE 5 MG/5 ML SYRINGE IV PUSH ONE (12:00)
[2017-01-27] MEDS ORDERED: GLYCOPYRROLATE 1 MG/5 ML SYRINGE IV PUSH ONE (12:00)
[2017-01-27] MEDS ORDERED: PROPOFOL 200 MG/20 ML AMP IV ONE (12:00)
[2017-01-27] MEDS ORDERED: MIDAZOLAM HCL 2 MG/2 ML VIAL IV ONE (12:00)
[2017-01-27] MEDS ORDERED: hydrALAZINE HCL 20 MG/ML VIAL IV ONE (12:00)
[2017-01-27] MEDS ORDERED: LIDOCAINE HCL 1% PF 5 ML SYRINGE OTHER ONE (12:00)
[2017-01-27] MEDS ORDERED: MORPHINE SULFATE 4 MG/ML INJ IV ONE (12:00)
[2017-01-27] MEDS ORDERED: METOPROLOL TARTRATE 5 MG/5 ML VIAL IV PUSH ONE (12:00)
[2017-01-27] MEDS ORDERED: BUPIVACAINE/EPINEPHRINE 0.25% PF 30 ML VIAL ONE (12:39)
--- NOTE | 2017-01-27 13:35 | HHI.HP ---
HPI Service General Surgery Primary Care Physician Hakan Dang MD, PhD Admission Diagnosis Acute cholecystitis Chief Complaint: Abdominal pain History of Present Illness 56 yo M developed acute onset epigastric pain which awoke him from sleep early this morning. The pain has been unrelenting and associated with nausea. It radiates to the back. He had similar episodes about 2.5 years ago but has not had problems since then. Labs were normal and u/s of the gallbladder shows stones and minimal pericholecystic fluid. No previous abdominal surgeries. Review of Systems Constitutional: DENIES: Fever, Chills Eyes: DENIES: Eye inflammation, Eye pain Respiratory: DENIES: Cough, Shortness of breath Cardiovascular: DENIES: Chest pain, Palpitations Gastrointestinal: COMPLAINS OF: Abdominal pain, Nausea Musculoskeletal: DENIES: Back pain, Neck pain Integumentary: DENIES: Pruritus, Rash Neurologic: DENIES: Paresthesias, Seizures Past Family Social History Past Medical History Kidney stones SVT s/p ablation in mid 90s Past Surgical History ESWL Cardiac ablation ganglion cyst excisions bilateral hands Reported Medications Reported Meds & Active Scripts Active No Active Prescriptions or Reported Medications Allergies: Coded Allergies: meperidine (Unverified Allergy, Severe, Anaphylaxis, 01/27/17) "ANAPHYLAXIS" ciprofloxacin (Unverified Allergy, Mild, Hives, 01/27/17) Active Ordered Medications Current Medications Medications (Trade) Dose Ordered Sig/Christos Route Start Time Stop Time Status Last Admin Sodium Chloride 1,000 ml @ 125 mls/hr Q8H IV 01/27/17 06:08 01/27/17 14:07 01/27/17 12:07 Sodium Chloride 1,000 ml @ 100 mls/hr Q10H IV 01/27/17 11:42 (NS Flush) 2 ml UNSCH PRN IV FLUSH 01/27/17 11:45 (NS Flush) 2 ml BID IV FLUSH 01/27/17 21:00 (Zofran Inj) 4 mg Q6H PRN IV PUSH 01/27/17 11:45 (Morphine Inj) 4 mg Q3H PRN IV PUSH 01/27/17 11:45 Family History Noncontributory Social History Occ ETOH, no tobacco or drug use. Physical Exam Vital Signs Vital Signs Date Time Temp Pulse Resp B/P (MAP) Pulse Ox O2 Delivery O2 Flow Rate FiO2 01/27/17 12:59 99.1 76 18 149/80 (103) 95 01/27/17 12:00 97.8 67 20 125/80 (95) 96 01/27/17 10:00 18 01/27/17 10:00 01/27/17 08:40 78 18 133/73 (93) 95 Room Air 01/27/17 06:19 94 Room Air 01/27/17 06:19 87 18 155/89 (111) 93 Room Air 01/27/17 06:00 98.1 88 16 190/85 (120) 95 Room Air Physical Exam GENERAL: Awake and alert. No acute distress. Cooperative. HEAD: Normocephalic. Atraumatic. EYES: Pupils equal round and reactive to light bilaterally. No scleral icterus. CHEST: Lungs clear to auscultation bilaterally with no wheezing or rhonchi. No respiratory distress. CARDIOVASCULAR: Regular rate and rhythm. ABDOMEN: soft, moderate epigastric ttp EXTREMITIES: No cyanosis or edema. SKIN: Warm, dry, nonjaundiced. Laboratory Laboratory Tests Test 01/27/17 06:15 White Blood Count 11.0 Red Blood Count 4.98 Hemoglobin 15.9 Hematocrit 45.1 Mean Corpuscular Volume 90.5 Mean Corpuscular Hemoglobin 32.0 Mean Corpuscular Hemoglobin Concent 35.4 Red Cell Distribution Width 13.6 Platelet Count 248 Mean Platelet Volume 9.1 Neutrophils (%) (Auto) 68.6 Lymphocytes (%) (Auto) 25.3 Monocytes (%) (Auto) 5.1 Eosinophils (%) (Auto) 0.6 Basophils (%) (Auto) 0.4 Neutrophils # (Auto) 7.6 Lymphocytes # (Auto) 2.8 Monocytes # (Auto) 0.6 Eosinophils # (Auto) 0.1 Basophils # (Auto) 0.0 CBC Comment DIFF FINAL Differential Comment Blood Urea Nitrogen 15 Creatinine 1.14 Random Glucose 144 Total Protein 8.6 Albumin 4.3 Calcium Level 9.1 Alkaline Phosphatase 85 Aspartate Amino Transf (AST/SGOT) 25 Alanine Aminotransferase (ALT/SGPT) 49 Total Bilirubin 0.4 Sodium Level 136 Potassium Level 4.4 Chloride Level 103 Carbon Dioxide Level 25.9 Anion Gap 7 Estimat Glomerular Filtration Rate 67 Lipase 180 Result Diagram: 01/27/17 0615 01/27/17 0615 Imaging Last Impressions Gall Bladder Ultrasound 01/27/17 0000 Signed Impressions: Service Date/Time: Friday, January 27, 2017 07:33 - CONCLUSION: 1. Liver is mildly echogenic which can be seen with hepatic steatosis. 2. Benign hepatic cyst. 3. Cholelithiasis and pericholecystic fluid. Acute cholecystitis cannot be excluded. MD Maikel Dotson VTE Risk Assessment Maikel VTE Risk Assessment: No/Low Risk (score <= 1) Caprini Risk Assessment Model Point Value = 1 Point Value = 2 Point Value = 3 Point Value = 5 Age 41-60 Minor surgery BMI > 25 kg/m2 Swollen legs Varicose veins or History of unexplained or recurrent spontaneous Oral contraceptives or hormone replacement Sepsis (< 1 month) Serious lung disease, including pneumonia (< 1 month) Abnormal pulmonary function Acute myocardial infarction Congestive heart failure (< 1 month) History of inflammatory bowel disease Medical patient at bed rest Age 61-74 Arthroscopic surgery Major open surgery (> 45 min) Laparoscopic surgery (> 45 min) Malignancy Confined to bed (> 72 hours) Immobilizing plaster cast Central venous access Age >= 75 History of VTE Family history of VTE Factor V Leiden Prothrombin [id number] Lupus anticoagulant Anticardiolipin antibodies Elevated serum homocysteine Heparin-induced thrombocytopenia Other congenital or acquired thrombophilia Stroke (< 1 month) Elective arthroplasty Hip, pelvis, or leg fracture Acute spinal cord injury (< 1 month) Prophylaxis Regimen Total Risk Factor Score Risk Level Prophylaxis Regimen 0-1 Low Early ambulation 2 Moderate Order ONE of the following: *Sequential Compression Device (SCD) *Heparin 5000 units SQ BID 3-4 Higher Order ONE of the following medications: *Heparin 5000 units SQ TID *Enoxaparin/Lovenox 40 mg SQ daily (WT < 150 kg, CrCl > 30 mL/min) *Enoxaparin/Lovenox 30 mg SQ daily (WT < 150 kg, CrCl > 10-29 mL/min) *Enoxaparin/Lovenox 30 mg SQ BID (WT < 150 kg, CrCl > 30 mL/min) AND/OR *Sequential Compression Device (SCD) 5 or more Highest Order ONE of the following medications: *Heparin 5000 units SQ TID (Preferred with Epidurals) *Enoxaparin/Lovenox 40 mg SQ daily (WT < 150 kg, CrCl > 30 mL/min) *Enoxaparin/Lovenox 30 mg SQ daily (WT < 150 kg, CrCl > 10-29 mL/min) *Enoxaparin/Lovenox 30 mg SQ BID (WT < 150 kg, CrCl > 30 mL/min) AND *Sequential Compression Device (SCD) Assessment and Plan Assessment and Plan 56 yo M with evaluation consistent with acute cholecystitis. Recommend to proceed to OR for laparoscopic possible open cholecystectomy. Discussed details and risks of procedure with him. He desires to proceed. Roney Santos MD Jan 27, 2017 13:35
[2017-01-27] MEDS ORDERED: PERC5TAB12 PO (14:20)
--- NOTE | 2017-01-27 14:26 | PD.OP ---
cc: Roney Santos MD Operative Report Date of Surgery: Jan 27, 2017 Preoperative Diagnosis: (1) Acute cholecystitis Postoperative Diagnosis: (1) Acute cholecystitis Procedure: Laparoscopic cholecystectomy Anesthesia: GETA Surgeon: Roney Santos Cook Room Supervisor(s): Staff Operation and Findings: Complications: None apparent EBL:100cc Operative findings: Gallbladder wall inflammation, stones, clear bile consistent with hydrops. Procedure in detail: The patient was taken to the operating room and placed in the supine position. General endotracheal anesthesia was induced. The abdomen was prepped and draped in usual sterile fashion and a surgical timeout was performed to verify correct patient procedure and site. Appropriate perioperative antibiotics were administered. Local anesthetic was injected in the skin and subcutaneous tissue superior to the umbilicus and a 5 mm incision performed. The abdomen was entered using the Optiview 5 mm trocar with direct laparoscopic visualization. The abdomen was then insufflated to 15 mmHg with CO2 gas which the patient tolerated well. Next a 12 mm port was placed in the epigastrium and two 5 mm ports in the right upper quadrant and right lateral abdomen. The patient was placed in reverse Trendelenburg position and turned slightly to the left. Attention was turned to the right upper quadrant and the dome of the gallbladder was grasped and retracted cephalad. The infundibulum was retracted laterally to expose Calot's triangle. Blunt dissection and judicious use of electrocautery was used to expose the cystic duct and the cystic artery directly entering the gallbladder. The cystic artery was inadvertently divided and there was bleeding from the cystic artery stump. It was controlled with the [place] dissector and a clip placed with cessation of bleeding. Next, Two clips were placed proximally on the cystic duct and one distally and it was transected.. The gallbladder was then removed from the liver bed using electrocautery. The gallbladder was entered and there was spillage of clear bile and some small stones. Gallstones were removed. Hemostasis was achieved. The gallbladder was then removed from the abdomen using an Endo Catch bag. The clips were in place on the cystic duct and cystic artery stumps with no bleeding or bile leakage. The right upper quadrant was copiously irrigated. At this point, the abdomen was allowed to desufflate and trochars were removed. The fascia at the 12 mm port site was closed with 0 Vicryl suture. Skin was closed with subcuticular 4-0 Monocryl as well as Dermabond. The patient tolerated the procedure well and was extubated and taken to PACU in stable condition. All sponge and instrument counts were correct. Roney Santos MD Jan 27, 2017 14:26
[2017-01-27] MEDS ORDERED: oxyCODONE/ACETAMINOPHEN 5 MG/325 MG TAB PO PRN ×2 (14:30)
[2017-01-27] MEDS ORDERED: DO NOT ADM ANY ANTICOAGULANT DRUGS PRN (15:00)
[2017-01-27] MEDS ORDERED: *morphine SULFATE 8 MG/ML PERIprocedure ONLY ONE (15:00)
[2017-01-27 16:00] VITALS: BP 168/86; PULSE 107; RESP 20; TEMP 97.2; O2SAT 92
[2017-01-27] MEDS ORDERED: *ONDANSETRON 4 MG VIAL PERIprocedural Use ONLY ONE (16:07)
--- NOTE | 2017-01-27 19:00 | EKG ---
Date Performed: 01/27/2017 Time Performed: 06:13:37 PTAGE: 56 years EKG: Sinus rhythm POSSIBLE LATERAL MYOCARDIAL INFARCTION ABNORMAL ECG PREVIOUS TRACING : 11/03/2016 17.18 Compared to prior tracing no significant change DOCTOR: Sacha Degroot Interpretating Date/Time 01/27/2017 18:58:09
[2017-01-27 20:00] VITALS: BP 179/96; PULSE 114; RESP 18; TEMP 96.2; O2SAT 94
[2017-01-27] MEDS ORDERED: PROMETHAZINE INJ 25 MG/ML VIAL IM PRN (21:00)
[2017-01-27] MEDS ORDERED: PROMETHAZINE HCL 25 MG TAB PO PRN (21:00)
[2017-01-27] MEDS: METOCLOPRAMIDE HCL 10 MG/2 ML VIAL IV SCH (21:23)
[2017-01-27] MEDS: SODIUM CHLORIDE 0.9% FLUSH 10 ML FLUSH IV FLUSH SCH (21:23)
[2017-01-28] VITALS: BP 113/65; PULSE 105; RESP 18; TEMP 99.1; O2SAT 92
[2017-01-28] MEDS: METOCLOPRAMIDE HCL 10 MG/2 ML VIAL IV SCH ×2 (03:29→08:55)
[2017-01-28 07:46] VITALS: BP 120/75; PULSE 84; RESP 18; TEMP 98; O2SAT 94
[2017-01-28] MEDS: SODIUM CHLORIDE 0.9% FLUSH 10 ML FLUSH IV FLUSH SCH (08:55)
== END 2017-01-28 11:06 | disposition home or self-care (01) ==
LOC: NEPC 05:57 → INTOOBSV 08:59 → NEDA 08:59 → N07B 09:53
PROVIDERS: ADMIT Surgery; ATTEND Surgery
DX: K80.10 Calculus of gallbladder with chronic cholecystitis without obstruction (principal); E78.00 Pure hypercholesterolemia, unspecified; K76.89 Other specified diseases of liver; R94.31 Abnormal electrocardiogram [ECG] [EKG]
CPT/HCPCS: 00790; 47562; 76705; 80053; 83690; 85025; 88304; 93005; 96361; 96365; 96374; 96375; 96376; 99285; G0378; J0360; J1100; J1170; J2250; J2270; J2405; J2543; J2710; J2765; J3010; J7030